=== PATIENT | female | born 1965 | race Caucasian/White ===

== ENCOUNTER → 2016-11-02 | Outpatient (CLI) | payer OTHER ==
[~2016-11-02] MED LIST: AMIT25TA PO; AMLO10TA2 PO; ASPI81TA85 PO; CLOP75TA2 PO; CRES40TA PO; KLON0.5T PO; LABE30TA PO; LEXA1TAB2 PO; LISI-538 PO; OMEP40CA2 PO; RITA20CA PO; TOPA100T8 PO; VITA1CAP25 PO; ZANA4CAP PO; ZOFR8TAB PO; ventolin INH
--- NOTE | 2016-11-17 01:06 | ECWPNPC ---
PATIENT NAME: ERIC MENDEZ : 1965 GENDER: FEMALE VISIT DATE: 11/02/2016 DISCHARGE DATE: 11/02/16 1336 VISIT LOCKED DATE TIME: PHYSICIAN: NOHEMI MILLAN RESOURCE: NOHEMI MILLAN REASON FOR APPOINTMENT 1. BACK/SHOULDER HISTORY OF PRESENT ILLNESS FALL RISK SCREENING: SCREENING :NO FALLS IN THE PAST YEAR PAIN SCREENING: PATIENT HAS A COMPLAINT OF ACUTE OR CHRONIC PAIN :YES TODAY'S VISIT: NOTES: HAS BEEN DEALING WITH LEFT ARM PAIN SINCE 05/07. PAIN HAS GOTTEN WORSE OVER TIME. PAIN IS AT SHOULDER AND RADIATES DOWN THE ARM. IS UNABLE TO RAISE LEFT ARM ABOVE WAIST LEVEL. HAD RECENT LEFT SUBCLAVIAN CAROTID BYPASS 07/03/16. HAD BEEN SEEN BY DR ROSENBERG FOR LOW BACK BUT HE SAID NO FURTHER TREATMENT UNTIL CIRCULATION FIXED IN LEFT ARM. HAS HAD MANY FALLS OVER THE LAST YEAR. DOES NOT RECALL A SPECIFIC INJURY. HAD SOME SWELLING OF LEFT HAND. NOTED NO CHANGE IN HAND COLOR, PAIN AFTER SURGERY. HAD BEEN HAVING SEVERE MIGRAINES - WAS ON DEPAKOTE FOR BIPOLAR DEPRESSION - HELPED MIGRAINES. IS NOW OFF DEPAKOTE, NO INCREASE IN MIGRAINES. HAS HAD NO PHYSICAL THERAPY FOR SHOULDERS. HAS HAD PREVIOUS CORTISONE INJECTIONS TO SHOULDER X1 WITH NO IMPROVEMENT. HAS PREVIOUSLY HAD TPI WITH IMPROVEMENT. . HAS HAD FACET JOINT WITH DR. CHAO VILLELA,PAIN MANAGEMENT - [place] AND TRIGGER POINT INJECTIONS TO LOW BACK AREA WITH DR OSUNA[facility]. . DR MORALES GAVE HER MORPHINE SULFATE EXTENDED RELEASE AND HYDROCODONE FOR SHOULDER PAIN. STATES ORPHINE WAS HELPFUL BUT DID NOT LAST 12 HOURS. HYDROCODONE HELPED BUT DIDN'T LAST LONG. SUBCLAVIAN SURGERY HAPPENED AND THAT HAS PUT THINGS ON HOLD. HAS HISTORY OF LOWER EXTTREMITY DVT. . CURRENT MEDICATIONS TAKING AMLODIPINE 5MG TABLET 1 TABLET ORAL DAILY TAKING LISINOPRIL 20 20 MG TABLET 1 TABLET ORAL TWICE A DAY TAKING ASPIR-81 81 MG TABLET DELAYED RELEASE 1 TABLET ORALLY ONCE A DAY TAKING CRESTOR 40 MG TABLET 1 TABLET ORALLY ONCE A DAY TAKING BACTROBAN NASAL 2 % OINTMENT DIRECTED NASALLY TAKING XARELTO 20 MG TABLET 1 TABLET WITH FOOD ORALLY ONCE A DAY TAKING ZOFRAN ODT 4 MG TABLET DISPERSIBLE 1 TABLET ON THE TONGUE AND ALLOW TO DISSOLVE ORALLY EVERY 8 HRS TAKING FERROUS SULFATE 325 (65 FE) MG TABLET 1 TABLET ORALLY ONCE A DAY TAKING VITAMIN D (ERGOCALCIFEROL) 29194 UNIT CAPSULE 1 CAPSULE ORALLY TAKING METHYLPHENIDATE HCL ER (CD) 40 MG CAPSULE EXTENDED RELEASE 1 CAPSULE IN THE MORNING ORALLY ONCE A DAY TAKING OMEPRAZOLE 40 MG CAPSULE DELAYED RELEASE 1 CAPSULE ORALLY ONCE A DAY TAKING HYDROCHLOROTHIAZIDE 25 MG TABLET 1 TABLET IN THE MORNING ORALLY THREE TIMES A WEEK TAKING EFFEXOR XR 75 MG CAPSULE EXTENDED RELEASE 24 HOUR 112 MG (75 37.5MG) CAPSULE WITH FOOD ORALLY ONCE A DAY TAKING CARAFATE 1 GM TABLET 1 TABLET ON AN EMPTY STOMACH ORALLY TWICE A DAY TAKING METOPROLOL SUCCINATE ER 25 MG TABLET EXTENDED RELEASE 24 HOUR 1 TABLET ORALLY ONCE A DAY TAKING AMITRIPTYLINE HCL 50 MG TABLET 1 TABLET ORALLY ONCE A DAY TAKING MORPHINE SULFATE ER 15 MG TABLET EXTENDED RELEASE 1 TABLET ORALLY EVERY 12 HRS TAKING XANAX 2 MG TABLET 1 TABLET ORALLY TWICE A DAY TAKING CO Q-10 200 MG CAPSULE 1 CAPSULE WITH A MEAL ORALLY ONCE A DAY NOT-TAKING BACTRIM DS 800-160 MG TABLET 1 TABLET ORALLY TWICE A DAY NOT-TAKING NYSTATIN 433388 UNIT/GM CREAM 1 APPLICATION TO AFFECTED AREA EXTERNALLY TWICE A DAY NOT-TAKING CLONAZEPAM 2 MG TABLET 1 TABLET ORALLY TWICE A DAY DISCONTINUED LABETALOL HCL 300 MG TABLET 1 TABLET ORALLY TWICE A DAY DISCONTINUED PROTONIX 40 MG TABLET DELAYED RELEASE 1 TABLET ORALLY TWICE A DAY DISCONTINUED CYMBALTA 60 MG CAPSULE DELAYED RELEASE PARTICLES 1 CAPSULE ORALLY 30 MG. IN THE AM AND 60 MG. IN THE PM DISCONTINUED PLAVIX 75 MG TABLET 1 TABLET ORALLY ONCE A DAY DISCONTINUED LYRICA 100 MG CAPSULE 1 CAPSULE ORALLY THREE TIMES A DAY DISCONTINUED METFORMIN HCL 500 MG TABLET 1 TABLET WITH MEALS ORALLY TWICE A DAY MEDICATION LIST REVIEWED AND RECONCILED WITH THE PATIENT PAST MEDICAL HISTORY MRSA SITE IN AXILLA AND SINUSES, NOT CURRENTLY HYPERCHOLESTEROLEMIA HYPERTENSION REFLUX PANIC DISORDER ANXIETY DISORDER BACK PAIN DVT/ BLOOD CLOTS ALLERGIES CODEINE SULFATE: PANCREATITIS: ALLERGY TRAMADOL HCL: SICK, SHAKY: ALLERGY IMITREX: INCREASES HEART RATE: ALLERGY NSAIDS: ON XARELTO: CONTRAINDICATION LYRICA: CAN'T TALK: ALLERGY SURGICAL HISTORY C SECTION HYSTERECTOMY FOR BLEEDING FIBROID TUMOR 2000 GALL BLADDER TONSILLECTOMY CAROTID ENDARTERECTOMY LEFT SUBCLAVIAN CAROTID BYPASS 2016 FAMILY HISTORY FATHER: ALIVE, HEART DISEASE, HYPERTENSION, PAD, DIAGNOSED WITH HYPERTENSION, HEART DISEASE MOTHER: , BLOOD CLOT, MYOCARDIAL INFARCTION, DIAGNOSED WITH HEART DISEASE SIBLINGS: ALIVE, 1 BROTHER/SUICIDE, 1 BROTHER/HEART ATTACK SON(S): ALIVE DAUGHTER(S): ALIVE 1 BROTHER(S) , 2 SISTER(S) - HEALTHY. 1 SON(S) , 1 DAUGHTER(S) . 1 BROTHER FROM HEART ATTACK, 1 BROTHER FROM SUICIDE, 1 DAUGHTER IN HER SLEEP 04/2014. SOCIAL HISTORY GENERAL: TOBACCO USE ARE YOU A:CURRENT SMOKER HOW MANY CIGARETTES A DAY DO YOU SMOKE?6-10 HOW OFTEN DO YOU SMOKE CIGARETTES?EVERY DAY PATIENT COUNSELED ON THE DANGERS OF TOBACCO USE AND URGED TO QUIT:11/02/2016 ARE YOU INTERESTED IN QUITTING?THINKING ABOUT QUITTING COUNSELED THE PATIENT ON SMOKING CESSATION, EDUCATION [id number]/13/2017 RECREATIONAL DRUG USE DENIES. CAFFEINE 2-5/DAY. OCCUPATION: UNEMPLOYED. DIET: REGULAR. EXERCISE: NO REGULAR EXERCISE. MARITAL STATUS: SINGLE. OTHERS AT HOME: NONE. PETS: 1 DOG. MU-ISM NO TENRIISM BELIEFS THAT WOULD IMPACT HEALTH CARE. LANGUAGE CYMRAES. ADVANCED DIRECTIVES HEALTH CARE PROXY? INDIRA BATES IS [facility] [phone] TRAVEL OUTSIDE US: NO. HOUSING: MOBILE HOME. HOSPITALIZATION/MAJOR DIAGNOSTIC PROCEDURE PSYCHIATRIC ADMISSION AT [facility] 10/03/16 BLOOD CLOTS IN SUBCLAVIAN AT [facility] 04/2016 REVIEW OF SYSTEMS CONSTITUTIONAL: ANY CHANGE IN YOUR MEDICAL CONDITION? YES HAD SURGERY ON BLOOD CLOT IN SUBCLAVIAN. HAD BEEN TAKEN OFF HER XARELTO FOR BLOOD CLOT PREVIOUSLY, DEVELOPED A NEW BLOOD CLOT WITHIN 4 DAYS. PT ALSO HAS A TORN ROTATOR CUFF LEFT SHOULDER. . CHILLS NO . FEVER NO . INFECTION: DO YOU HAVE NEW INFECTIONS? NO . DO YOU HAVE HISTORY OF MRSA? NO . MUSCULOSKELETAL: ANY NEW PATTERNS OF PAIN OR NUMBNESS? NO . SYTEMIC LUPUS NO . GASTROENTEROLOGY: ANY NEW CHANGE IN BOWEL CONTROL? NO . BARRETTS ESOPHAGUS NO . CIRRHOSIS NO . HEPATITIS NO . LIVER FAILURE NO . ACID REFLUX YES -ON CARAFFATE, AND OMEPRAZOLE WHICH IS HELPING . UNEXPLAINED WEIGHT LOSS NO . GENITOURINARY: ANY NEW CHANGE IN BLADDER CONTROL? NO . IS THERE A CHANCE YOU COULD BE ? NO . HEMATOLOGY/LYMPH: DO YOU TAKE ANY BLOOD THINNERS? (FOR EXAMPLE- COUMADIN, PLAVIX, AGGRENOX, PLATEL, PRADAXA, OR XARELTO) YES XARELTO - FOR DVT PREVENTION . WHEN WAS YOUR LAST DOSE? DATE: TIME: . LOW PLATELET COUNT NO . SICKLE CELL DISEASE NO . VON WILLIEBRANDS NO . FACTOR V LEIDEN NO . THALLASEMIA NO . ANEMIA NO . EASY BRUISING NO . NEUROLOGY: HAVE YOU FALLEN IN THE PAST 6 MONTHS? 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 . ANY NEW EXTREMITY NUMBNESS OR WEAKNESS? NO . HEAD INJURY NO . DEMENTIA NO . CEREBRAL PALSY NO . MULTIPLE SCLEROSIS NO . DIZZINESS NO . HEADACHE NO . STROKES NO . VERTIGO NO . CARDIOLOGY: DO YOU HAVE A PACEMAKER OR DEFIBRILLATOR? NO . ANGINA NO . HEART ATTACK NO . HEART SURGERY NO . CONGESTIVE HEART FAILURE/FLUID OVERLOAD NO . STROKE SYMPTOM AFTER SUBCLAVIAN ENDARTERECTOMY . CHEST PAIN NO . HIGH BLOOD PRESSURE NO . IRREGULAR HEART BEAT NO . RESPIRATORY: SLEEP APNEA ADMITS - ON O2 AT NITE , IS SUPPOSED TO US CPAP BUT LOST IN HOUSE FIRE. . HAVE YOU BEEN SICK IN THE PAST WEEK? NO . FEVER NO . FLU LIKE SYMPTOMS? NO . CPAP NO . BYPAP NO . ASTHMA NO . EMPHYSEMA NO . CHRONIC LUNG DISEASES NO . SHORTNESS OF BREATH ON EXERTION NO . COUGH NO . SNORING NO . INTEGUMENTARY: DO YOU HAVE ANY RASHES OR OPEN SORES? NO . ALLERGIC/IMMUNO: ARE YOU ALLERGIC TO SHELLFISH OR IV DYE? NO . ANY NEW ALLERGIES? NO . PSYCHIATRIC: DO YOU HAVE THOUGHTS OF HURTING YOURSELF OR SOMEONE ELSE? YES PT REPORTS SHE IS VERY DEPRESSED ABOUT HER PHYSICAL CONDITION, FEELS SHE HAS NO LIFE. SHE SEES A THERAPIST IN [place] . ARE YOU ABUSED, NEGLECTED, OR IN AN UNSAFE ENVIRONMENT? NO . ENDOCRINOLOGY: ARE YOU DIABETIC? NO . THYROID DISORDER NO . OTHER: DO YOU NEED ANY PRESCRIPTIONS? NO . IF YES, PLEASE LIST: ____ . ANY NEW PROBLEMS WITH YOUR MEDICATIONS? NO . WHEN DID YOU LAST EAT? ____ . WHEN DID YOU LAST DRINK? ____ . WHAT DID YOU LAST DRINK? ____ . NAME OF PERSON DRIVING YOU HOME? ____ . DO YOU HAVE ANY OTHER QUESTIONS OR CONCERNS NO . PSYCHOLOGY: DEPRESSION SEES COUNSELOR. DENIES SUICIDAL IDEATION - DID NOT COMPLETE DIETZ DEPRESSION SELF INVENTORY - EXPRESSED. . REVIEWED BY: PROVIDER: NOHEMI DEMARCO . VITAL SIGNS WT 215.4 LBS, HT 62 IN, BMI 39.39 INDEX, BP 165/94 MM HG, HR 104 /MIN, RR 16 /MIN, TEMP 98.6 F, OXYGEN SAT % 96%, NA INITIALS SC 11:50. EXAMINATION GENERAL EXAMINATION: PSYCHRAPID SPEACH WITH LABILE EMOTIONS. , ALERT , ORIENTED X 3 , GOOD EYE CONTACT. HEENT:NORMOCEPHALIC, NO LYPHADENOPATHY, WELL HEALED SURGICAL INCISION LEFT NECK/CLAVICLE. LUNGS:CLEAR TO AUSCULTATION BILATERALLY, NO WHEEZES, RALES OR RHONCHI. HEART:LEFT CAROTID BRUIT. MUSCULOSKELETAL:POINT TENDERNESS OVER CERVICAL SPINOUS PROCESSES AND OVER LEFT AC JOINT. DECREASED SENIOR DATA QUALITY ANALYST STRENGTH LEFT HAND. UNABLE TO ABDUCT LEFT ARM ABOVE 45 DEGREES. INTENSE LEFT SHOULDER PAIN WITH INTERNAL/EXTERNAL ROTATION OF THE JOINT. , TRIGGER POINTS AND TIGHT FIBROUS BANDS IDENTIFIED OVER THE CERVICAL PARASPINOUS MUSCLES AND ACROSS THE LEFT TRAPEZIUS AND SUPRASPINATUS.. NEUROLOGIC EXAM:DECREASED SENSATION OVER LEFT DELTOID. DTR'S 2+ BILATERAL UPPER AND 3+ BILATERAL LOWER EXTREMITIES. ASSESSMENTS LEFT ANTERIOR SHOULDER PAIN - M25.512 (PRIMARY) INCOMPLETE TEAR OF LEFT ROTATOR CUFF - M75.112 TREATMENT LEFT ANTERIOR SHOULDER PAIN START OXYCODONE HCL TABLET, 10 MG, 1 TABLET NEEDED, ORALLY, TAKE 1 TAB PRIOR TO PHYSICAL THERAPY, AND ONE TAB AFTER - MDD=2, MAX PER WEEK =6, 14 DAY(S), 12, REFILLS 0 STOP MORPHINE SULFATE ER TABLET EXTENDED RELEASE, 15 MG, 1 TABLET, ORALLY, EVERY 12 HRS NOTES: UTOX TODAYSTART OXYCODONE 5 MG 1 TAB PRIOR TO PT, AND ONE FOR AFTER THERAPY - NO MORE THAN 6 TABS PER WEEK. BRING ALL OPIODS TO NEXT VISITICE TO LEFT SHOULDER, 2-3 TIMES PER DAY START PHYSICAL THERAPY. GOALS:ABLE TO GO FISHING, REACH HAND TO HEAD, ABLE TO SLEEP IN A RECLINED POSITION. PROCEDURE CODES FA211 ESTABILISHED PATIENT [facility] CHARGE DISPOSITION & COMMUNICATION FOLLOW UP 2 WEEKS ELECTRONICALLY SIGNED BY VESTA SERRANO ON 11/16/2016 AT 01:29 PM EDT DISCLAIMER : THIS IS A VISIT SUMMARY EXTRACTED FROM THE [employer] CHART. IT IS NOT A COPY OF THE [employer] PROGRESS NOTE. [facility]
== END | disposition home or self-care (01) ==
LOC: M PAIN 11:20
PROVIDERS: ATTEND Nurse Practitioner Family
DX: G89.29 Other chronic pain (principal); M25.512 Pain in left shoulder; M75.112 Incomplete rotator cuff tear or rupture of left shoulder, not specified as traumatic; I10 Essential (primary) hypertension; K21.9 Gastro-esophageal reflux disease without esophagitis; E78.00 Pure hypercholesterolemia, unspecified; F41.9 Anxiety disorder, unspecified; Z86.718 Personal history of other venous thrombosis and embolism; Z86.14 Personal history of Methicillin resistant Staphylococcus aureus infection; Z79.899 Other long term (current) drug therapy; Z79.01 Long term (current) use of anticoagulants; Z88.5 Allergy status to narcotic agent; Z88.8 Allergy status to other drugs, medicaments and biological substances; F17.210 Nicotine dependence, cigarettes, uncomplicated

== ENCOUNTER → 2016-11-28 | Outpatient (CLI) | payer OTHER ==
--- NOTE | 2016-12-18 23:46 | ECWPNPC ---
PATIENT NAME: ERIC MENDEZ : 1965 GENDER: FEMALE VISIT DATE: 11/28/2016 DISCHARGE DATE: 11/28/16 1056 VISIT LOCKED DATE TIME: PHYSICIAN: NOHEMI MILLAN RESOURCE: NOHEMI MILLAN REASON FOR APPOINTMENT 1. BACK/SHOULDER HISTORY OF PRESENT ILLNESS HISTORY OF PRESENT ILLNESS: PAIN THE PATIENT DESCRIBES THE PAIN... FALL RISK SCREENING: SCREENING :NO FALLS IN THE PAST YEAR TODAY'S VISIT: NOTES: RATES PAIN TODAY 03/01. HAS BEEN WORKING HARD IN THERAPY AND IS DOING IS DOING HOME EXERCISES. NOTES THAT THE OXYCODONE IS HELPFUL.. CURRENT MEDICATIONS TAKING LISINOPRIL 20 20 MG TABLET 1 TABLET ORAL TWICE A DAY TAKING ASPIR-81 81 MG TABLET DELAYED RELEASE 1 TABLET ORALLY ONCE A DAY TAKING CRESTOR 40 MG TABLET 1 TABLET ORALLY ONCE A DAY TAKING BACTROBAN NASAL 2 % OINTMENT DIRECTED NASALLY TAKING XARELTO 20 MG TABLET 1 TABLET WITH FOOD ORALLY ONCE A DAY TAKING ZOFRAN ODT 4 MG TABLET DISPERSIBLE 1 TABLET ON THE TONGUE AND ALLOW TO DISSOLVE ORALLY EVERY 8 HRS TAKING FERROUS SULFATE 325 (65 FE) MG TABLET 1 TABLET ORALLY ONCE A DAY TAKING VITAMIN D (ERGOCALCIFEROL) 99410 UNIT CAPSULE 1 CAPSULE ORALLY TAKING METHYLPHENIDATE HCL ER (CD) 40 MG CAPSULE EXTENDED RELEASE 1 CAPSULE IN THE MORNING ORALLY ONCE A DAY TAKING OMEPRAZOLE 40 MG CAPSULE DELAYED RELEASE 1 CAPSULE ORALLY ONCE A DAY TAKING HYDROCHLOROTHIAZIDE 25 MG TABLET 1 TABLET IN THE MORNING ORALLY THREE TIMES A WEEK TAKING EFFEXOR XR 75 MG CAPSULE EXTENDED RELEASE 24 HOUR 112 MG (75 37.5MG) CAPSULE WITH FOOD ORALLY ONCE A DAY TAKING CARAFATE 1 GM TABLET 1 TABLET ON AN EMPTY STOMACH ORALLY TWICE A DAY TAKING AMITRIPTYLINE HCL 50 MG TABLET 1 TABLET ORALLY ONCE A DAY TAKING METOPROLOL SUCCINATE ER 25 MG TABLET EXTENDED RELEASE 24 HOUR 1 TABLET ORALLY ONCE A DAY TAKING CO Q-10 200 MG CAPSULE 1 CAPSULE WITH A MEAL ORALLY ONCE A DAY TAKING OXYCODONE HCL 10 MG TABLET 1 TABLET NEEDED ORALLY TAKE 1 TAB PRIOR TO PHYSICAL THERAPY, AND ONE TAB AFTER - MDD=2, TAKING ATIVAN 2 MG TABLET 1 TAB NEEDED ORALLY TID NOT-TAKING AMLODIPINE 5MG TABLET 1 TABLET ORAL DAILY NOT-TAKING XANAX 2 MG TABLET 1 TABLET ORALLY TWICE A DAY NOT-TAKING BACTRIM DS 800-160 MG TABLET 1 TABLET ORALLY TWICE A DAY NOT-TAKING NYSTATIN [id number] UNIT/GM CREAM 1 APPLICATION TO AFFECTED AREA EXTERNALLY TWICE A DAY NOT-TAKING CLONAZEPAM 2 MG TABLET 1 TABLET ORALLY TWICE A DAY MEDICATION LIST REVIEWED AND RECONCILED WITH THE PATIENT PAST MEDICAL HISTORY MRSA SITE IN AXILLA AND SINUSES, NOT CURRENTLY HYPERCHOLESTEROLEMIA HYPERTENSION REFLUX PANIC DISORDER ANXIETY DISORDER BACK PAIN DVT/ BLOOD CLOTS ALLERGIES CODEINE SULFATE: PANCREATITIS: ALLERGY TRAMADOL HCL: SICK, SHAKY: ALLERGY IMITREX: INCREASES HEART RATE: ALLERGY NSAIDS: ON XARELTO: CONTRAINDICATION LYRICA: CAN'T TALK: ALLERGY SURGICAL HISTORY C SECTION HYSTERECTOMY FOR BLEEDING FIBROID TUMOR 2000 GALL BLADDER TONSILLECTOMY CAROTID ENDARTERECTOMY LEFT SUBCLAVIAN CAROTID BYPASS 2016 HOSPITALIZATION/MAJOR DIAGNOSTIC PROCEDURE PSYCHIATRIC ADMISSION AT [facility] 10/03/16 BLOOD CLOTS IN SUBCLAVIAN AT [facility] 04/2016 REVIEW OF SYSTEMS CONSTITUTIONAL: ANY CHANGE IN YOUR MEDICAL CONDITION? NO . CHILLS NO . FEVER NO . INFECTION: DO YOU HAVE NEW INFECTIONS? NO . DO YOU HAVE HISTORY OF MRSA? NO . MUSCULOSKELETAL: ANY NEW PATTERNS OF PAIN OR NUMBNESS? NO . GASTROENTEROLOGY: ANY NEW CHANGE IN BOWEL CONTROL? NO . GENITOURINARY: ANY NEW CHANGE IN BLADDER CONTROL? NO . IS THERE A CHANCE YOU COULD BE ? NO . HEMATOLOGY/LYMPH: DO YOU TAKE ANY BLOOD THINNERS? (FOR EXAMPLE- COUMADIN, PLAVIX, AGGRENOX, PLATEL, PRADAXA, OR XARELTO) YES . WHEN WAS YOUR LAST DOSE? 11/28/16 AT 0800 . NEUROLOGY: HAVE YOU FALLEN IN THE PAST 6 MONTHS? NO . ANY NEW EXTREMITY NUMBNESS OR WEAKNESS? YES . CARDIOLOGY: DO YOU HAVE A PACEMAKER OR DEFIBRILLATOR? NO . RESPIRATORY: HAVE YOU BEEN SICK IN THE PAST WEEK? NO . FEVER NO . FLU LIKE SYMPTOMS? NO . COUGH NO . INTEGUMENTARY: DO YOU HAVE ANY RASHES OR OPEN SORES? NO . ALLERGIC/IMMUNO: ARE YOU ALLERGIC TO SHELLFISH OR IV DYE? NO . ANY NEW ALLERGIES? NO . PSYCHIATRIC: DO YOU HAVE THOUGHTS OF HURTING YOURSELF OR SOMEONE ELSE? NO . ARE YOU ABUSED, NEGLECTED, OR IN AN UNSAFE ENVIRONMENT? NO . ENDOCRINOLOGY: ARE YOU DIABETIC? NO . OTHER: DO YOU NEED ANY PRESCRIPTIONS? YES . IF YES, PLEASE LIST: ____OXYCODONE . ANY NEW PROBLEMS WITH YOUR MEDICATIONS? NO . WHEN DID YOU LAST EAT? ____ . WHEN DID YOU LAST DRINK? ____ . WHAT DID YOU LAST DRINK? ____ . NAME OF PERSON DRIVING YOU HOME? ____ . DO YOU HAVE ANY OTHER QUESTIONS OR CONCERNS NO . REVIEWED BY: PROVIDER: NOHEMI DEMARCO . VITAL SIGNS WT 213.2 LBS, HT 62 IN, BMI 38.99 INDEX, BP 153/82 MM HG, HR 98 /MIN, RR 16 /MIN, TEMP 97.8 F, OXYGEN SAT % 96%, NA INITIALS SC 10:02, REVIEWED BY: CL. EXAMINATION GENERAL EXAMINATION: PSYCH ALERT , ORIENTED X 3 , GOOD EYE CONTACT. HEENT:NORMOCEPHALIC, NO LYPHADENOPATHY, WELL HEALED SURGICAL INCISION LEFT NECK/CLAVICLE. LUNGS:CLEAR TO AUSCULTATION BILATERALLY, NO WHEEZES, RALES OR RHONCHI. HEART:LEFT CAROTID BRUIT. MUSCULOSKELETAL:POINT TENDERNESS OVER CERVICAL SPINOUS PROCESSES AND OVER LEFT AC JOINT. DECREASED HEDGE FUND MANAGER STRENGTH LEFT HAND. UNABLE TO ABDUCT LEFT ARM ABOVE 45 DEGREES. INTENSE LEFT SHOULDER PAIN WITH INTERNAL/EXTERNAL ROTATION OF THE JOINT. , TRIGGER POINTS AND TIGHT FIBROUS BANDS IDENTIFIED OVER THE CERVICAL PARASPINOUS MUSCLES AND ACROSS THE LEFT TRAPEZIUS AND SUPRASPINATUS. SHOULDER TAPING IN PLACE. NEUROLOGIC EXAM:DECREASED SENSATION OVER LEFT DELTOID. . ASSESSMENTS LEFT ANTERIOR SHOULDER PAIN - M25.512 (PRIMARY) INCOMPLETE TEAR OF LEFT ROTATOR CUFF - M75.112 TREATMENT LEFT ANTERIOR SHOULDER PAIN REFILL OXYCODONE HCL TABLET, 10 MG, 1 TABLET NEEDED, ORALLY, TAKE 1 TAB PRIOR TO PHYSICAL THERAPY, AND ONE TAB AFTER - MDD=2,, 30 DAY(S), 60, REFILLS 0 NOTES: CONTINUE PHYSICAL THERAPY AND HOME PROGRAM. DISPOSE OF ALPRAZALAM. PROCEDURE CODES FA211 ESTABILISHED PATIENT [facility] CHARGE DISPOSITION & COMMUNICATION FOLLOW UP END December ELECTRONICALLY SIGNED BY VESTA SERRANO ON 12/18/2016 AT 03:22 PM EDT DISCLAIMER : THIS IS A VISIT SUMMARY EXTRACTED FROM THE [employer] CHART. IT IS NOT A COPY OF THE [employer] PROGRESS NOTE. [place]
== END | disposition home or self-care (01) ==
LOC: M PAIN 10:00
PROVIDERS: ATTEND Nurse Practitioner Family
DX: G89.29 Other chronic pain (principal); M25.512 Pain in left shoulder; M75.112 Incomplete rotator cuff tear or rupture of left shoulder, not specified as traumatic; I10 Essential (primary) hypertension; E78.00 Pure hypercholesterolemia, unspecified; K21.9 Gastro-esophageal reflux disease without esophagitis; F41.1 Generalized anxiety disorder; Z86.718 Personal history of other venous thrombosis and embolism; Z86.14 Personal history of Methicillin resistant Staphylococcus aureus infection; Z95.1 Presence of aortocoronary bypass graft; Z79.899 Other long term (current) drug therapy; Z79.82 Long term (current) use of aspirin; Z79.01 Long term (current) use of anticoagulants; Z88.2 Allergy status to sulfonamides; Z88.5 Allergy status to narcotic agent; Z88.8 Allergy status to other drugs, medicaments and biological substances

== ENCOUNTER → 2016-12-29 | Outpatient (CLI) | payer OTHER ==
--- NOTE | 2017-01-18 00:51 | ECWPNPC ---
PATIENT NAME: ERIC MENDEZ : 1965 GENDER: FEMALE VISIT DATE: 12/29/2016 DISCHARGE DATE: 12/29/16 1205 VISIT LOCKED DATE TIME: PHYSICIAN: NOHEMI MILLAN RESOURCE: NOHEMI MILLAN REASON FOR APPOINTMENT 1. MEDS HISTORY OF PRESENT ILLNESS HISTORY OF PRESENT ILLNESS: PAIN THE PATIENT DESCRIBES THE PAIN... FALL RISK SCREENING: SCREENING :NO FALLS IN THE PAST YEAR TODAY'S VISIT: NOTES: RATES PAIN TODAY 8/10. DESCRIBES PAIN ALMOST CONST, ACHING, SHARP, SHOOTING SORE AND TENDER. PAIN REMAINS CENTERED AT LEFT SHOULDER AND HAS NEW AREA AT THE RIGHT KNEE. HAD CORTISONE INJECTION TO LEFT SHOULDER - HAD REACTION TO INJECTION WITH INCREASED IRRITABILITY. HAS BEEN HAVING NERVE DAMAGE WITH BURNING AND NUMBNESS IN RIGHT THIGH. HAS HAD MULTIPLE FALLS. HAS COMPLETED PHYSICAL THERAPY FOR THIS AREA. . CURRENT MEDICATIONS TAKING LISINOPRIL 20 20 MG TABLET 1 TABLET ORAL TWICE A DAY TAKING ASPIR-81 81 MG TABLET DELAYED RELEASE 1 TABLET ORALLY ONCE A DAY TAKING CRESTOR 40 MG TABLET 1 TABLET ORALLY ONCE A DAY TAKING BACTROBAN NASAL 2 % OINTMENT DIRECTED NASALLY TAKING XARELTO 20 MG TABLET 1 TABLET WITH FOOD ORALLY ONCE A DAY TAKING ZOFRAN ODT 4 MG TABLET DISPERSIBLE 1 TABLET ON THE TONGUE AND ALLOW TO DISSOLVE ORALLY EVERY 8 HRS TAKING FERROUS SULFATE 325 (65 FE) MG TABLET 1 TABLET ORALLY ONCE A DAY TAKING VITAMIN D (ERGOCALCIFEROL) 21914 UNIT CAPSULE 1 CAPSULE ORALLY TAKING METHYLPHENIDATE HCL ER (CD) 40 MG CAPSULE EXTENDED RELEASE 1 CAPSULE IN THE MORNING ORALLY ONCE A DAY TAKING OMEPRAZOLE 40 MG CAPSULE DELAYED RELEASE 1 CAPSULE ORALLY ONCE A DAY TAKING HYDROCHLOROTHIAZIDE 25 MG TABLET 1 TABLET IN THE MORNING ORALLY THREE TIMES A WEEK TAKING EFFEXOR XR 75 MG CAPSULE EXTENDED RELEASE 24 HOUR 112 MG (75 37.5MG) CAPSULE WITH FOOD ORALLY ONCE A DAY TAKING CARAFATE 1 GM TABLET 1 TABLET ON AN EMPTY STOMACH ORALLY TWICE A DAY TAKING AMITRIPTYLINE HCL 50 MG TABLET 1 TABLET ORALLY ONCE A DAY TAKING METOPROLOL SUCCINATE ER 25 MG TABLET EXTENDED RELEASE 24 HOUR 1 TABLET ORALLY ONCE A DAY TAKING CO Q-10 200 MG CAPSULE 1 CAPSULE WITH A MEAL ORALLY ONCE A DAY TAKING OXYCODONE HCL 10 MG TABLET 1 TABLET NEEDED ORALLY TAKE 1 TAB PRIOR TO PHYSICAL THERAPY, AND ONE TAB AFTER - MDD=2, TAKING CLONAZEPAM 2 MG TABLET 1 TABLET ORALLY TWICE A DAY NOT-TAKING ATIVAN 2 MG TABLET 1 TAB NEEDED ORALLY TID NOT-TAKING AMLODIPINE 5MG TABLET 1 TABLET ORAL DAILY NOT-TAKING XANAX 2 MG TABLET 1 TABLET ORALLY TWICE A DAY NOT-TAKING BACTRIM DS 800-160 MG TABLET 1 TABLET ORALLY TWICE A DAY NOT-TAKING NYSTATIN [id number] UNIT/GM CREAM 1 APPLICATION TO AFFECTED AREA EXTERNALLY TWICE A DAY MEDICATION LIST REVIEWED AND RECONCILED WITH THE PATIENT PAST MEDICAL HISTORY MRSA SITE IN AXILLA AND SINUSES, NOT CURRENTLY HYPERCHOLESTEROLEMIA HYPERTENSION REFLUX PANIC DISORDER ANXIETY DISORDER BACK PAIN DVT/ BLOOD CLOTS ALLERGIES CODEINE SULFATE: PANCREATITIS: ALLERGY TRAMADOL HCL: SICK, SHAKY: ALLERGY IMITREX: INCREASES HEART RATE: ALLERGY NSAIDS: ON XARELTO: CONTRAINDICATION LYRICA: CAN'T TALK: ALLERGY REVIEW OF SYSTEMS REVIEWED BY: PROVIDER: NOHEMI DEMARCO . CONSTITUTIONAL: ANY CHANGE IN YOUR MEDICAL CONDITION? YES, LUMP IN NECK . CHILLS NO . FEVER NO . INFECTION: DO YOU HAVE NEW INFECTIONS? NO . DO YOU HAVE HISTORY OF MRSA? NO . MUSCULOSKELETAL: ANY NEW PATTERNS OF PAIN OR NUMBNESS? YES, WORSENING NERVE PAIN AND ISSUES ON RIGHT LEG . GASTROENTEROLOGY: ANY NEW CHANGE IN BOWEL CONTROL? NO . GENITOURINARY: ANY NEW CHANGE IN BLADDER CONTROL? NO . IS THERE A CHANCE YOU COULD BE ? NO . HEMATOLOGY/LYMPH: DO YOU TAKE ANY BLOOD THINNERS? (FOR EXAMPLE- COUMADIN, PLAVIX, AGGRENOX, PLATEL, PRADAXA, OR XARELTO) NO . WHEN WAS YOUR LAST DOSE? DATE: TIME: . NEUROLOGY: HAVE YOU FALLEN IN THE PAST 6 MONTHS? NO . ANY NEW EXTREMITY NUMBNESS OR WEAKNESS? NO . CARDIOLOGY: DO YOU HAVE A PACEMAKER OR DEFIBRILLATOR? NO . RESPIRATORY: HAVE YOU BEEN SICK IN THE PAST WEEK? NO . FEVER NO . FLU LIKE SYMPTOMS? NO . COUGH NO . INTEGUMENTARY: DO YOU HAVE ANY RASHES OR OPEN SORES? NO . ALLERGIC/IMMUNO: ARE YOU ALLERGIC TO SHELLFISH OR IV DYE? NO . ANY NEW ALLERGIES? NO . PSYCHIATRIC: DO YOU HAVE THOUGHTS OF HURTING YOURSELF OR SOMEONE ELSE? NO . ARE YOU ABUSED, NEGLECTED, OR IN AN UNSAFE ENVIRONMENT? NO . ENDOCRINOLOGY: ARE YOU DIABETIC? NO . OTHER: DO YOU NEED ANY PRESCRIPTIONS? NO . IF YES, PLEASE LIST: ____ . ANY NEW PROBLEMS WITH YOUR MEDICATIONS? NO . WHEN DID YOU LAST EAT? ____ . WHEN DID YOU LAST DRINK? ____ . WHAT DID YOU LAST DRINK? ____ . NAME OF PERSON DRIVING YOU HOME? ____ . DO YOU HAVE ANY OTHER QUESTIONS OR CONCERNS NO . VITAL SIGNS WT 207.4 LBS, HT 62 IN, BMI 37.93 INDEX, BP 157/81 MM HG, HR 100 /MIN, RR 16 /MIN, TEMP 98.9 F, OXYGEN SAT % 97%, NA INITIALS SC 11:02. EXAMINATION GENERAL EXAMINATION: NECK:FIRM MASS AT BASE OF NECK OVER LEFT CAROTID.. LUNGS:CLEAR TO AUSCULTATION BILATERALLY, NO WHEEZES. HEART:LEFT CAROTID BRUIT, HEART RATE REGULAR. MUSCULOSKELETAL:FAIR ROM AT LEFT AC JOINT . ABLE TO ABDUCT LEFT SHOULDER/ARM TO 60 DECREES, FAIR SHOULDER SHRUG. MANAGER MULTICULTURAL STRENGTH EQUAL AND STRONG. . EXTREMITIES:NO EDEMA. ASSESSMENTS LEFT ANTERIOR SHOULDER PAIN - M25.512 (PRIMARY) INCOMPLETE TEAR OF LEFT ROTATOR CUFF - M75.112 TREATMENT LEFT ANTERIOR SHOULDER PAIN START NORCO TABLET, 5-325 MG, 1 TABLET NEEDED, ORALLY, EVERY 6-8 HOURS MDD=3 HRS, 30 DAY(S), 90, REFILLS 0 NOTES: UTOX TODAY. CHANGE TO HYDROCODONE 5/325 ON 01/10/17 - MAX 3 TIMES A DAY.CALL DR GEOFF SHAIKH = GET DISC FROM [facility]. PROCEDURE CODES FA211 ESTABILISHED PATIENT [facility] FACILITY CHARGE DISPOSITION & COMMUNICATION FOLLOW UP 26-28 DAYS (REASON: SUMMER - NEED CT OF NECK DONE AT [facility]) ELECTRONICALLY SIGNED BY VESTA SERRANO ON 01/17/2017 AT 10:38 AM EDT DISCLAIMER : THIS IS A VISIT SUMMARY EXTRACTED FROM THE [employer] CHART. IT IS NOT A COPY OF THE [employer] PROGRESS NOTE. PATRIA
== END | disposition home or self-care (01) ==
LOC: M PAIN 10:20
PROVIDERS: ATTEND Nurse Practitioner Family
DX: G89.29 Other chronic pain (principal); M25.512 Pain in left shoulder; M75.112 Incomplete rotator cuff tear or rupture of left shoulder, not specified as traumatic; E78.00 Pure hypercholesterolemia, unspecified; I10 Essential (primary) hypertension; K21.9 Gastro-esophageal reflux disease without esophagitis; F41.0 Panic disorder [episodic paroxysmal anxiety]; Z86.718 Personal history of other venous thrombosis and embolism; Z86.14 Personal history of Methicillin resistant Staphylococcus aureus infection; Z79.82 Long term (current) use of aspirin; Z79.899 Other long term (current) drug therapy; Z79.01 Long term (current) use of anticoagulants; Z88.5 Allergy status to narcotic agent; Z88.8 Allergy status to other drugs, medicaments and biological substances

== ENCOUNTER → 2017-02-20 | Outpatient (CLI) | payer OTHER ==
[~2017-02-20] MED LIST changes: +TOPA100T12 PO; -TOPA100T8 PO
--- NOTE | 2017-02-28 23:55 | ECWPNPC ---
PATIENT NAME: ERIC MENDEZ : 1965 GENDER: FEMALE VISIT DATE: 02/20/2017 DISCHARGE DATE: 02/20/17 0000 VISIT LOCKED DATE TIME: PHYSICIAN: NOHEMI MILLAN RESOURCE: NOHEMI MILLAN REASON FOR APPOINTMENT 1. SHOULDER HISTORY OF PRESENT ILLNESS HISTORY OF PRESENT ILLNESS: PAIN THE PATIENT DESCRIBES THE PAIN... FALL RISK SCREENING: SCREENING :NO FALLS IN THE PAST YEAR TODAY'S VISIT: NOTES: RETURNS TODAY FOR FOLLOWUP FOR RIGHT SHOULDER PAIN. RECEIVED CALL FROM [facility] PNP ( SEE APPROPRIATE SUMMER) REGARDING RECENT INTENTIONAL OVERDOSE AND HOSPITALIZATION. STATES SAW VASCULAR SURGEON ABOUT CAROTIC ARTERY GRAFT. HE HAS CLEARED HER FOR FURTHER LEFT SHOULDER ORTHOPEDIC SURGERY. HAS SEEN HER PSYCHIATRIST AND IS BEING STARTED ON SEROQUEL AND AND STRATTERA. SHE HAS NOT YET STARTED THE STRATTERA. STATES THAT SHE CAN NOT DEAL WITH THE SHOULDER PAIN. RATES HER PAIN LEVEL 8/10 AND STATES SHE HAS LIMITED FUNCTION OF THE RIGHT SHOULDER. STATES IT WAS TAPED AT THE HOSPITAL AND THAT HAS HELPED. REPORTS THE GABAPENTIN SHE WAS BEEN TAKING IS NOT HELPFUL AND THAT SHE WAS STARTED ON LYRICA AT [facility] WHICH HAS DECREASED SOME OF THE BURNING AND SHARP PAIN.. CURRENT MEDICATIONS TAKING LISINOPRIL 20 20 MG TABLET 1 TABLET ORAL TWICE A DAY TAKING ASPIR-81 81 MG TABLET DELAYED RELEASE 1 TABLET ORALLY ONCE A DAY TAKING CRESTOR 40 MG TABLET 1 TABLET ORALLY ONCE A DAY TAKING BACTROBAN NASAL 2 % OINTMENT DIRECTED NASALLY TAKING XARELTO 20 MG TABLET 1 TABLET WITH FOOD ORALLY ONCE A DAY TAKING ZOFRAN ODT 4 MG TABLET DISPERSIBLE 1 TABLET ON THE TONGUE AND ALLOW TO DISSOLVE ORALLY EVERY 8 HRS TAKING FERROUS SULFATE 325 (65 FE) MG TABLET 1 TABLET ORALLY ONCE A DAY TAKING VITAMIN D (ERGOCALCIFEROL) 17730 UNIT CAPSULE 1 CAPSULE ORALLY TAKING OMEPRAZOLE 40 MG CAPSULE DELAYED RELEASE 1 CAPSULE ORALLY ONCE A DAY TAKING HYDROCHLOROTHIAZIDE 25 MG TABLET 1 TABLET IN THE MORNING ORALLY THREE TIMES A WEEK TAKING CARAFATE 1 GM TABLET 1 TABLET ON AN EMPTY STOMACH ORALLY TWICE A DAY TAKING METOPROLOL SUCCINATE ER 25 MG TABLET EXTENDED RELEASE 24 HOUR 1 TABLET ORALLY ONCE A DAY TAKING CO Q-10 200 MG CAPSULE 1 CAPSULE WITH A MEAL ORALLY ONCE A DAY TAKING NORCO 5-325 MG TABLET 1 TABLET NEEDED ORALLY EVERY 6-8 HOURS MDD=3 HRS TAKING PROZAC 10 MG CAPSULE 1 CAPSULE IN THE MORNING ORALLY ONCE A DAY TAKING STRATTERA 18 MG CAPSULE ORALLY TAKING SEROQUEL 25 MG TABLET 1 TABLET ORALLY ONCE A DAY TAKING LYRICA 75 MG CAPSULE 1 CAPSULE ORALLY TWICE A DAY NOT-TAKING METHYLPHENIDATE HCL ER (CD) 40 MG CAPSULE EXTENDED RELEASE 1 CAPSULE IN THE MORNING ORALLY ONCE A DAY NOT-TAKING EFFEXOR XR 75 MG CAPSULE EXTENDED RELEASE 24 HOUR 112 MG (75 37.5MG) CAPSULE WITH FOOD ORALLY ONCE A DAY NOT-TAKING AMITRIPTYLINE HCL 50 MG TABLET 1 TABLET ORALLY ONCE A DAY NOT-TAKING OXYCODONE HCL 10 MG TABLET 1 TABLET NEEDED ORALLY TAKE 1 TAB PRIOR TO PHYSICAL THERAPY, AND ONE TAB AFTER - MDD=2, NOT-TAKING CLONAZEPAM 2 MG TABLET 1 TABLET ORALLY TWICE A DAY NOT-TAKING ATIVAN 2 MG TABLET 1 TAB NEEDED ORALLY TID NOT-TAKING AMLODIPINE 5MG TABLET 1 TABLET ORAL DAILY NOT-TAKING XANAX 2 MG TABLET 1 TABLET ORALLY TWICE A DAY NOT-TAKING BACTRIM DS 800-160 MG TABLET 1 TABLET ORALLY TWICE A DAY NOT-TAKING NYSTATIN 373291 UNIT/GM CREAM 1 APPLICATION TO AFFECTED AREA EXTERNALLY TWICE A DAY MEDICATION LIST REVIEWED AND RECONCILED WITH THE PATIENT PAST MEDICAL HISTORY MRSA SITE IN AXILLA AND SINUSES, NOT CURRENTLY HYPERCHOLESTEROLEMIA HYPERTENSION REFLUX PANIC DISORDER ANXIETY DISORDER BACK PAIN DVT/ BLOOD CLOTS ALLERGIES CODEINE SULFATE: PANCREATITIS: ALLERGY TRAMADOL HCL: SICK, SHAKY: ALLERGY IMITREX: INCREASES HEART RATE: ALLERGY NSAIDS: ON XARELTO: CONTRAINDICATION LYRICA: CAN'T TALK: ALLERGY SURGICAL HISTORY C SECTION HYSTERECTOMY FOR BLEEDING FIBROID TUMOR 2000 GALL BLADDER TONSILLECTOMY CAROTID ENDARTERECTOMY LEFT SUBCLAVIAN CAROTID BYPASS 2016 HOSPITALIZATION/MAJOR DIAGNOSTIC PROCEDURE PSYCHIATRIC ADMISSION AT [facility] 10/03/16 BLOOD CLOTS IN SUBCLAVIAN AT [facility] 04/2016 REVIEW OF SYSTEMS FOLLOW-UP ROS: PSYCHOLOGY: DEPRESSION AND ANGER. STATES SHE DOES NOT KNOW HOW SHE WILL MOVE FORWARD. HSS SEEN HER COUNSELOR AND PSYCHIATRIST SINCE HER HOSPITALIZATION ONE WEEK AGO. . REVIEWED BY: PROVIDER: NOHEMI DEMARCO . CONSTITUTIONAL: ANY CHANGE IN YOUR MEDICAL CONDITION? NO . CHILLS NO . FEVER NO . INFECTION: DO YOU HAVE NEW INFECTIONS? YES, MRSA RIGHT ARM PIT LEFT GROIN, SINUS . DO YOU HAVE HISTORY OF MRSA? YES . MUSCULOSKELETAL: ANY NEW PATTERNS OF PAIN OR NUMBNESS? YES, LEFT SHOULDER PAIN, PT STATES SHE COMPLETED 6 WEEKS PT, CORTISONE INJECTIONS TO LEFT SHOULDER, PT STATES SHE HAD CAROTID TO SUBCLAVIAN BIPASS LEFT SIDE, AND LEFT NECK AREA HAS BEEN GROWNING. PT STATES SHE SAW ORTHO GROUP FOR LEFT SHOULDER SURGERY AND SHE WAS TOLD THEY WOULD NOT TOUCH HER LEFT SHOULDER WITH HER LEFT NECK ENLARGED. PT SAW VASCULAR SURGEON IN [place] WHO EXPLAINED TO HER THAT THIS IS A GRAFT WHICH HAS GROWN IN SIZE, IF IT CONTINUES GROWING, HE WILL FIX IT FOR HER. . GASTROENTEROLOGY: ANY NEW CHANGE IN BOWEL CONTROL? NO . GENITOURINARY: ANY NEW CHANGE IN BLADDER CONTROL? NO . IS THERE A CHANCE YOU COULD BE ? NO . HEMATOLOGY/LYMPH: DO YOU TAKE ANY BLOOD THINNERS? (FOR EXAMPLE- COUMADIN, PLAVIX, AGGRENOX, PLATEL, PRADAXA, OR XARELTO) YES, XARELTO . WHEN WAS YOUR LAST DOSE? DATE: TIME: . NEUROLOGY: HAVE YOU FALLEN IN THE PAST 6 MONTHS? NO . ANY NEW EXTREMITY NUMBNESS OR WEAKNESS? NO . CARDIOLOGY: DO YOU HAVE A PACEMAKER OR DEFIBRILLATOR? NO . RESPIRATORY: HAVE YOU BEEN SICK IN THE PAST WEEK? NO . FEVER NO . FLU LIKE SYMPTOMS? NO . COUGH NO . INTEGUMENTARY: DO YOU HAVE ANY RASHES OR OPEN SORES? NO . ALLERGIC/IMMUNO: ARE YOU ALLERGIC TO SHELLFISH OR IV DYE? NO . ANY NEW ALLERGIES? NO . PSYCHIATRIC: DO YOU HAVE THOUGHTS OF HURTING YOURSELF OR SOMEONE ELSE? NO . ARE YOU ABUSED, NEGLECTED, OR IN AN UNSAFE ENVIRONMENT? NO . ENDOCRINOLOGY: ARE YOU DIABETIC? NO . OTHER: DO YOU NEED ANY PRESCRIPTIONS? YES, PAIN MEDS . IF YES, PLEASE LIST: ____ . ANY NEW PROBLEMS WITH YOUR MEDICATIONS? NO . WHEN DID YOU LAST EAT? ____ . WHEN DID YOU LAST DRINK? ____ . WHAT DID YOU LAST DRINK? ____ . NAME OF PERSON DRIVING YOU HOME? ____ . DO YOU HAVE ANY OTHER QUESTIONS OR CONCERNS NO . VITAL SIGNS WT 202.8 LBS, HT 62 IN, BMI 37.09 INDEX, BP 163/91 MM HG, HR 86 /MIN, RR 16 /MIN, TEMP 98.3 F, OXYGEN SAT % 97%, SAFE IN ENV? (Y/N) Y, NA INITIALS SC 11:04, REVIEWED BY: SHAINA. EXAMINATION GENERAL EXAMINATION: NECK:FIRM PULSATILE MASS AT BASE OF NECK OVER LEFT CAROTID.. LUNGS:CLEAR TO AUSCULTATION BILATERALLY, NO WHEEZES. HEART:LEFT CAROTID BRUIT, HEART RATE REGULAR. MUSCULOSKELETAL:FAIR ROM AT LEFT AC JOINT . ABLE TO ABDUCT LEFT SHOULDER/ARM TO 60 DECREES, FAIR SHOULDER SHRUG. IVF EMBRYOLOGIST STRENGTH EQUAL AND STRONG. SUPPORT TALING PRESENT OVER DELTOID AND SUPRASPINATUS, TRIGGER POINTS AND TIGHT FIBROUS BANDS IDENTIFIED OVER RIGHT SCAPULA:. EXTREMITIES:NO EDEMA. ASSESSMENTS LEFT ANTERIOR SHOULDER PAIN - M25.512 (PRIMARY) INCOMPLETE TEAR OF LEFT ROTATOR CUFF - M75.112 TREATMENT LEFT ANTERIOR SHOULDER PAIN START LYRICA CAPSULE, 75 MG, 1 CAPSULE, ORALLY, TWICE A DAY, 30 DAY(S), 60 CAPSULE, REFILLS [address] [facility] [address]-SHOULDER WITHOUT [id number] [facility] FOREARM (RADIUS/ULNA)[id number] NOTES: DO EXERCISES FOR LEFT SHOULDERCALL YOUR COUNSELOR FOR SUPPORT. CLINICAL NOTES: DISCUSSED WITH ERIC THAT DUE TO HER RECENT INTENTIONAL OVERDOSE AND CONTINUED CONCERNS REGARDING SAFETY AND IMPULSE CONTROL THAT I WILL NOT BE RESTARTING HER HYDROCODONE. SHE WAS NOT HAPPY WITH THIS. WE WILL ATTEMPT TO OBTAIN PRIOR AUTH FOFR THE LYRICA AND WILL MONITOR CLOSELY. SHE REPORTS HER SIGNIFICANT OTHER HAS NOW TAKEN CONTROL OF HER MEDS. WILL CONSIDER OPIATES WHEN AND IF SHE HAS FURTHER SURGERY TO THE SHOULDER. , [employer] REGISTRY REVIEWED AND DEMNOSTRATES COMPLLIANCE. PROCEDURE CODES [id number] ESTABILISHED PATIENT [facility] FACILITY CHARGE DISPOSITION & COMMUNICATION FOLLOW UP 6 WEEKS (REASON: LEFT SHOULDER/FIBRO) ELECTRONICALLY SIGNED BY VESTA SERRANO ON 02/28/2017 AT 08:29 AM EDT DISCLAIMER : THIS IS A VISIT SUMMARY EXTRACTED FROM THE [employer] CHART. IT IS NOT A COPY OF THE [employer] PROGRESS NOTE. PATRIA
== END | disposition home or self-care (01) ==
LOC: M PAIN 10:00
PROVIDERS: ATTEND Nurse Practitioner Family
DX: G89.29 Other chronic pain (principal); M25.512 Pain in left shoulder; M75.112 Incomplete rotator cuff tear or rupture of left shoulder, not specified as traumatic; E78.00 Pure hypercholesterolemia, unspecified; I10 Essential (primary) hypertension; K21.9 Gastro-esophageal reflux disease without esophagitis; F41.9 Anxiety disorder, unspecified; Z86.14 Personal history of Methicillin resistant Staphylococcus aureus infection; Z86.73 Personal history of transient ischemic attack (TIA), and cerebral infarction without residual deficits; Z79.899 Other long term (current) drug therapy; Z79.82 Long term (current) use of aspirin; Z79.01 Long term (current) use of anticoagulants; Z88.2 Allergy status to sulfonamides; Z88.5 Allergy status to narcotic agent; Z88.8 Allergy status to other drugs, medicaments and biological substances